=== PATIENT | female | born 1955 | race Hispanic/Latino ===

== ENCOUNTER → 2020-03-01 | Outpatient (CLI) | payer OTHER | END | disposition home or self-care (01) | LOC: OIH 08:45 | PROVIDERS: ATTEND Internal Medicine | DX: M85.842 Other specified disorders of bone density and structure, left hand (principal); M85.841 Other specified disorders of bone density and structure, right hand ==

== ENCOUNTER 2022-07-12 07:36 | Observation (INO) | payer OTHER, MEDICARE ==
[2022-07-06 10:53] LABS: INR 0.93 (0.85-1.15); PROTHROMBIN TIME 10.2 SEC (9.6-11.6)
[2022-07-06 10:54] LABS: PARTIAL THROMBOPLASTIN TIME 29.1 SEC (26.3-35.5)
[2022-07-06 11:43] VITALS: BP 142/59
[~2022-07-12] VITALS: Ht 144.8 cm; Wt 64.6 kg
[2022-07-12] VITALS (25 sets, daily range): BP systolic 81–157; BP diastolic 34–89
[~2022-07-12 07:36] MED LIST: CLOT15C TP; DULO30CA52 PO; GABA300C PO; LISI10TA24 PO; OMEP20CA12 PO; ROSU5TAB12 PO; VIT B12; VITAMIN D2
[2022-07-12 08:10] LABS: BASOPHILS % (AUTO) 0.3 % (0.0-5.0); EOSINOPHILS % (AUTO) 1.2 % (0.0-8.0); HEMATOCRIT 39.7 % (36-48); LYMPHOCYTES % (AUTO) 29.7 % (21.0-51.0); MEAN CORPUSCULAR HEMOGLOBIN 29.1 pg (27.0-33.0); MEAN CORPUSCULAR VOLUME 91.1 fL (79-99); MONOCYTES % (AUTO) 7.2 % (3.0-13.0); NEUTROPHILS % (AUTO) 61.2 % (40.0-77.0); PLATELET COUNT (AUTO) 244 K/uL (130-400); RED BLOOD CELL COUNT(AUTO) 4.36 MIL/uL (4.00-5.50); RED CELL DISTRIBUTION WIDTH 12.8 % (11.0-15.5); WHITE BLOOD COUNT (AUTO) 7.5 K/uL (4.8-10.8)
[2022-07-12 08:23] LABS: CREATININE 0.5 mg/dL (0.5-1.5); POTASSIUM 3.9 mmol/L (3.5-5.1)
[2022-07-12] MEDS ORDERED: LACTATED RINGERS 1000ML 1,000 ML IV ONE (08:25)
[2022-07-12] MEDS: CEFAZOLIN SODIUM 2 GM VIAL ONE ×2 (08:40→11:58)
[2022-07-12] MEDS ORDERED: MIDAZOLAM HCL 1 MG/ML 2ML VIAL ONE (11:14)
[2022-07-12] MEDS ORDERED: PROPOFOL 10 MG/ML 20ML VIAL IV ONE (11:14)
[2022-07-12] MEDS ORDERED: FENTANYL CITRATE PF 50 MCG/1 ML 2ML VIAL ONE (11:14)
[2022-07-12] MEDS ORDERED: ROCURONIUM 10MG/1ML SYR 10 MG/ML ML ONE (11:15)
[2022-07-12] MEDS ORDERED: TRANEXAMIC ACID 1000MG/10ML ONE (11:29)
[2022-07-12] MEDS ORDERED: PHENYLEPHRINE HCL 10 MG/ML 1ML VIAL IV ONE (11:35)
[2022-07-12] MEDS ORDERED: POTASSIUM CHLORIDE 10% ELIXIR 20 MEQ/15 ML UDCUP PO PRN (12:00)
[2022-07-12] MEDS ORDERED: ONDANSETRON 4MG INJ IVP PRN (12:00)
[2022-07-12] MEDS ORDERED: HYDROCODONE/ACETAMINOPHEN 10/325 MG TAB PO PRN (12:00)
[2022-07-12] MEDS ORDERED: HYDROCODONE/ACETAMINOPHEN 5/325 MG TAB PO PRN (12:00)
[2022-07-12] MEDS ORDERED: MORPHINE 4 MG SYG IVP PRN (12:00)
[2022-07-12] MEDS ORDERED: KCL 20 MEQ ERTAB PO PRN (12:00)
[2022-07-12] MEDS ORDERED: POTASSIUM CHLORIDE 20MEQ/100ML 100 ML IV PRN (12:00)
[2022-07-12] MEDS ORDERED: EPHEDRINE SULFATE 50 MG/ML AMPULE ONE ×2 (13:33→14:17)
[2022-07-12] MEDS ORDERED: NEOSTIGMINE 5MG/5ML SYR IV ONE (13:52)
[2022-07-12] MEDS ORDERED: GLYCOPYRROLATE 1 MG/5 ML SYRINGE ONE (13:52)
[2022-07-12] MEDS ORDERED: DEXAMETHASONE SOD PHOSPHATE 10MG/ML 1ML VIAL ONE (14:04)
[2022-07-12] MEDS ORDERED: ONDANSETRON 4MG INJ ONE (14:04)
[2022-07-12] MEDS ORDERED: MEPERIDINE-PF 25 MG/ML SYG ONE ×2 (14:29→14:50)
[2022-07-12] MEDS: ACETAMINOPHEN 1,000 MG/100 ML VIAL IV SCH ×3 (14:46→23:11)
[2022-07-12] MEDS: TRAMADOL HCL 50 MG TABLET PO SCH ×3 (16:11→23:11)
[2022-07-12] MEDS: IBUPROFEN 800MG + NS 250ML IV SCH ×2 (16:11→22:29)
[2022-07-12] MEDS: 0.9%NACL 1000ML 1,000 ML IV SCH ×2 (16:11→22:00)
[2022-07-12] MEDS: CEFAZOLIN SODIUM 1 GM VIAL IVPB SCH (18:30)
[2022-07-12] MEDS: FAMOTIDINE 20MG TAB PO SCH (20:44)
[2022-07-12] MEDS: ASPIRIN 81 MG EC TAB PO SCH (20:44)
[2022-07-12] MEDS: DULOXETINE HCL 30 MG CAP PO SCH (20:44)
[2022-07-12] MEDS: GABAPENTIN 300 MG CAPSULE PO SCH (20:45)
[2022-07-13] MEDS: CEFAZOLIN SODIUM 1 GM VIAL IVPB SCH (01:15)
[2022-07-13 03:54] VITALS: BP 108/43
[2022-07-13 04:53] LABS: HEMATOCRIT 32.3 % (36-48); MEAN CORPUSCULAR HEMOGLOBIN 28.8 pg (27.0-33.0); MEAN CORPUSCULAR HGB CONC 32.5 g/dL (32.0-36.0); MEAN CORPUSCULAR VOLUME 88.7 fL (79-99); RED BLOOD CELL COUNT(AUTO) 3.64 MIL/uL (4.00-5.50); RED CELL DISTRIBUTION WIDTH 12.9 % (11.0-15.5); WHITE BLOOD COUNT (AUTO) 11.5 K/uL (4.8-10.8)
[2022-07-13 05:04] LABS: CREATININE 0.7 mg/dL (0.5-1.5); POTASSIUM 3.8 mmol/L (3.5-5.1)
[2022-07-13] MEDS: TRAMADOL HCL 50 MG TABLET PO SCH ×3 (05:38→17:47)
[2022-07-13] MEDS: IBUPROFEN 800MG + NS 250ML IV SCH (05:38)
[2022-07-13 08:00] VITALS: BP 112/53
[2022-07-13] MEDS: 0.9%NACL 1000ML 1,000 ML IV SCH (08:00)
[2022-07-13] MEDS: PANTOPRAZOLE 40 MG TAB DR PO SCH (08:08)
[2022-07-13] MEDS: ASPIRIN 81 MG EC TAB PO SCH ×2 (08:08→20:56)
[2022-07-13] MEDS: FAMOTIDINE 20MG TAB PO SCH ×2 (08:08→20:56)
[2022-07-13] MEDS: LISINOPRIL 10 MG TABLET PO SCH (08:08)
[2022-07-13] MEDS: POLYETHYLENE GLYCOL 3350 17 GM POWD.PACK PO SCH (08:08)
[2022-07-13 11:26] VITALS: BP 92/46
[2022-07-13 15:23] VITALS: BP 123/56
[2022-07-13] MEDS: GABAPENTIN 300 MG CAPSULE PO SCH (20:56)
[2022-07-13] MEDS: DULOXETINE HCL 30 MG CAP PO SCH (20:56)
[2022-07-13 21:06] VITALS: BP 116/47
[2022-07-13 23:28] VITALS: BP 106/56
[2022-07-14] MEDS: TRAMADOL HCL 50 MG TABLET PO SCH ×3 (00:16→11:50)
[2022-07-14 03:59] VITALS: BP 85/55
[2022-07-14] MEDS: PANTOPRAZOLE 40 MG TAB DR PO SCH (06:02)
[2022-07-14] MEDS: POLYETHYLENE GLYCOL 3350 17 GM POWD.PACK PO SCH (07:44)
[2022-07-14] MEDS: ASPIRIN 81 MG EC TAB PO SCH (07:44)
[2022-07-14] MEDS: FAMOTIDINE 20MG TAB PO SCH (07:44)
[2022-07-14 08:00] VITALS: BP 99/54
[2022-07-14] MEDS: LISINOPRIL 10 MG TABLET PO SCH (08:00)
[2022-07-14 12:00] VITALS: BP 105/51
[2022-07-14] MEDS ORDERED: MAGNESIUM HYDROXIDE 30 ML/UDCUP PO SCH (12:00)
[2022-07-14] MEDS: BISACODYL 10 MG SUPP.RECT RC ONE ×2 (12:03→14:14)
[2022-07-15] MEDS ORDERED: BISACODYL 10 MG SUPP.RECT RC PRN (12:00)
== END 2022-07-14 15:55 ==
LOC: DAH 07:36 → DAHIP 07:37 → DAH 07:37 → 4AH 15:58
PROVIDERS: ADMIT Orthopaedic Surgery; ATTEND Orthopaedic Surgery
DX: M16.12 Unilateral primary osteoarthritis, left hip (principal); Z20.822 Contact with and (suspected) exposure to COVID-19; M54.16 Radiculopathy, lumbar region; I10 Essential (primary) hypertension; Z86.69 Personal history of other diseases of the nervous system and sense organs; Z79.899 Other long term (current) drug therapy
CPT/HCPCS: 85610; 85730; 87426; 36415 ×3; 87641; 27130; 64415; 96376; 96365; 96366 ×2; 96375; 96367; 80048 ×2; 85025; 73503; 97161; 97039 ×5; 85027; 97116 ×4; 97530 ×4; C1776 ×5; G0378 ×47; A4663; A4606; A4649 ×5; J7120; J3010; J0690 ×3; J3490 ×4; J1100; J2710; J2250; J2704; J2405 ×2; J2175 ×2; J2370; J1741 ×4; G0168; A6212; A4930; A5120; A4215; A4223; A4222; A4221; J2270

== ENCOUNTER → 2023-03-10 | Outpatient (CLI) | payer OTHER ==
[~2023-03-10] MED LIST changes: +CEFAZOLIN SODIUM 1 GM VIAL ONE
== END | disposition home or self-care (01) ==
LOC: SHCH 12:37
PROVIDERS: ATTEND Internal Medicine Cardiovascular Disease
DX: G45.1 Carotid artery syndrome (hemispheric) (principal); I70.8 Atherosclerosis of other arteries
CPT/HCPCS: 93880

== ENCOUNTER 2023-07-12 07:22 | Day surgery (SDC) | payer OTHER, MEDICARE ==
[2023-07-12] VITALS (11 sets, daily range): BP systolic 99–136; BP diastolic 49–70; PULSE 63–81; RESP 14–16
[~2023-07-12] VITALS: Ht 147.3 cm; Wt 63.5 kg
[~2023-07-12 07:22] MED LIST changes: +ACET-2247 PO; +ALEN70TA80 PO; -CEFAZOLIN SODIUM 1 GM VIAL ONE; -CLOT15C TP; +CYAN1TAB44 PO; +DOCU100T PO; +DULO30CA2 PO; -DULO30CA52 PO; -OMEP20CA12 PO; +PANT40TA54 PO; -ROSU5TAB12 PO; -VIT B12; -VITAMIN D2
[2023-07-12] MEDS: 0.9%NACL 1000ML 1,000 ML IV ONE (08:19)
[2023-07-12] MEDS ORDERED: PROPOFOL 10 MG/ML 20ML VIAL IV ONE ×2 (09:18)
== END 2023-07-12 10:40 | disposition home or self-care (01) ==
LOC: ENDO 07:22 → DAH 07:22 → ENDO 10:40 → EDSTATUS 13:07
PROVIDERS: ATTEND Internal Medicine Gastroenterology
DX: K59.04 Chronic idiopathic constipation (principal); K63.5 Polyp of colon; K62.1 Rectal polyp; K57.30 Diverticulosis of large intestine without perforation or abscess without bleeding; K21.9 Gastro-esophageal reflux disease without esophagitis; K44.9 Diaphragmatic hernia without obstruction or gangrene; K76.0 Fatty (change of) liver, not elsewhere classified; E78.00 Pure hypercholesterolemia, unspecified; E66.9 Obesity, unspecified; Z68.29 Body mass index [BMI] 29.0-29.9, adult; Z86.010 Personal history of colon polyps; Z88.8 Allergy status to other drugs, medicaments and biological substances; Z83.3 Family history of diabetes mellitus; Z82.49 Family history of ischemic heart disease and other diseases of the circulatory system; Z79.899 Other long term (current) drug therapy; Z90.49 Acquired absence of other specified parts of digestive tract; Z90.710 Acquired absence of both cervix and uterus; Z98.890 Other specified postprocedural states
CPT/HCPCS: 45380; 45385; J7030; J2704; A4620; A4215 ×2; A4223; A4222; A4221; A4663; A4606; J3490